=== PATIENT | female | born 1980 | race Caucasian/White ===

== ENCOUNTER 2016-08-23 22:10 | Emergency (ER) | payer MEDICAID ==
[~2016-08-23] VITALS: Ht 167.6 cm; Wt 84.5 kg
[~2016-08-23 22:10] MED LIST: IBUP-1542 PO; OMEG1CAP30 PO
[2016-08-23 22:11] VITALS: Ht 167.6 cm; Wt 84.5 kg
[2016-08-23] MEDS ORDERED: KETOROLAC 30 MG INJ IM STA (23:26)
--- NOTE | 2016-08-24 00:19 | ERD ---
ER Documentation Chief Complaint Date/Time DATE: 08/24/16 TIME: 00:13 Chief Complaint l foot pain sp fall HPI This is a 35-year-old female presenting to the emergency department for left foot pain after fall. Patient states yesterday she slipped and fell landing awkwardly on her left foot. Patient now has pain and swelling to left foot and ankle. Patient states swelling and pain were worse yesterday and has improved today. Patient has been taking Tylenol at home without relief of pain. Patient has full mobility of left foot and ankle. Can bear full weight without difficulty. Walking without limp. Patient rating pain 8/10. Neurovascularly intact. ROS All systems reviewed and are negative except as per history of present illness. Medications Home Meds Active Scripts Ibuprofen* (Motrin*) 800 Mg Tab, 800 MG PO Q6, #15 TAB Prov:JANY COON NP 08/24/16 Hydrocodone/Acetaminophen ([place] 5-325 Tablet) 1 Each Tablet, 1 TAB PO Q6H Y for PAIN, #15 TAB Prov:JANY COON NP 08/24/16 Ibuprofen* (Motrin*) 600 Mg Tab, 600 MG PO Q6, #30 TAB Prov:FIDE ROE MD 02/19/15 Reported Medications Fish Oil/[place]-3 Fatty Acids ([place] 3 Fish Oil Softgel) 1 Cap.ec Capsule.dr, 1000 MG PO DAILY, CAP 02/19/15 Allergies Allergies: Coded Allergies: Fish Containing Products (Verified Allergy, Unknown, 02/19/15) No Known Drug Allergies (Verified Allergy, Unknown, 02/19/15) PMhx/Soc Medical and Surgical Hx: pt denies Medical Hx, pt denies Surgical Hx History of Surgery: No Anesthesia Reaction: No Hx Neurological Disorder: No Hx Respiratory Disorders: Yes Hx Cardiac Disorders: No Hx Psychiatric Problems: No Hx Miscellaneous Medical Probl: Yes (HIGH CHOLESTEROL) Hx Alcohol Use: No Hx Substance Use: No Hx Tobacco Use: No Smoking Status: Never smoker Physical Exam Vitals Vital Signs Date Time Temp Pulse Resp B/P Pulse Ox O2 Delivery O2 Flow Rate FiO2 08/23/16 22:11 97.8 74 18 157/88 98 Physical Exam Const: No acute distress, alert Head: Atraumatic Eyes: Normal Conjunctiva ENT: Normal External Ears, Nose and Mouth. Neck: Full range of motion..~ No meningismus. Resp: Clear to auscultation bilaterally Cardio: Regular rate and rhythm, no murmurs Abd: Soft, non tender, non distended. Normal bowel sounds Skin: No petechiae or rashes Back: No midline or flank tenderness Ext: mild edema to left ankle. ecchymosis and tenderness to palpation of left lateral malleolus. full mobility and strength to left foot and ankle. strength equal bilaterally to lower extremities. pedal pulses palpable bilaterally. no erythema to lower extremity. Neur: Awake and alert Psych: Normal Mood and Affect Results 24 hrs Current Medications Medications (Trade) Dose Ordered Sig/[place] Route PRN Reason Start Time Stop Time Status Last Admin Dose Admin Ketorolac Tromethamine (Toradol) 30 mg ONCE STAT IM 08/23/16 23:26 08/23/16 23:29 DC 08/23/16 23:48 Acetaminophen/ Hydrocodone Bitart ([place] (5/325)) 1 tab ONCE ONCE PO 08/24/16 01:30 08/24/16 01:31 DC 08/24/16 01:22 Procedures/MDM ED COURSE: The patient was stable throughout ED course. I kept the patient and/or family informed of laboratory and diagnostic imaging results throughout the ED course. Toradol given Laboratory Urine negative Imaging X-ray left foot Patient: CELIO FAJARDO : 1980 Age: 35 Sex: F MR #: [id number] DOS: 08/23/16 2326 Ordering MD: JANY COON NP Location: [facility] Room/Bed: PROCEDURE: LEFT FOOT - 3 VIEWS CLINICAL INDICATION: 35-year-old female with left foot pain. TECHNIQUE: AP, lateral and oblique views of the left foot was obtained. The images were reviewed on a PACS workstation. COMPARISON: Left ankle obtained concurrently. FINDINGS: There is an oblique fracture through the distal left fibula. The bones of the left foot appear intact, with no evidence of fracture, dislocation, or subluxation. The joint spaces are preserved. Bone mineralization is within normal limits. IMPRESSION: Oblique distal left fibular fracture. x-ray left ankle Patient: CELIO FAJARDO : 1980 Age: 35 Sex: F MR #: [id number] DOS: 08/23/16 2326 Ordering MD: JANY COON NP Location: [facility] Room/Bed: PROCEDURE: LEFT ANKLE - 3 VIEWS CLINICAL INDICATION: 35-year-old female with left ankle pain. TECHNIQUE: AP, oblique and lateral views of the left ankle were performed. The images reviewed on a PACS workstation. COMPARISON: None. FINDINGS: There is an oblique nondisplaced fracture through the distal left fibula. The mortise and subtalar joints appear intact. There is no evidence for dislocation. There is lateral malleolar region soft tissue swelling. The bone marrow mineralization is within normal limits. IMPRESSION: 1. Oblique nondisplaced distal left fibular fracture. 2. Soft tissue swelling. MDM: 35-year-old female presents to the emergency department for left foot pain after fall. Fall occurred yesterday. Patient is having pain especially near left lateral malleolus with surrounding ecchymosis. X-ray left foot reviewed by radiologist as oblique distal left fibular fracture. X-ray left ankle reviewed by radiologist at oblique nondisplaced distal left fibular fracture and soft tissue swelling. Stirrup ankle splint applied while in the ED. Patient remains neurovascularly intact pre-and post splint application. Patient given Toradol and [place] on the ED with some relief of pain. Discussed findings with patient. Instructed patient to follow-up with orthopedic physician and resources provided at discharge. Remains hemodynamically stable, calm and comfortable throughout ED visit. Patient's diagnosis is distal fibular fracture. Patient is appropriate for outpatient management will be given prescription for [place] and ibuprofen. Instructed patient to follow-up with orthopedic physician as soon as possible and resources provided at discharge. Return to ED for any high fever, chest pain, difficulty breathing, shortness breath, wheezing, vomiting, diarrhea, abdominal pain or any new or worsening symptoms. Patient verbalizes understanding. All questions answered at discharge. Departure Diagnosis: Primary Impression: Left fibular fracture Encounter type: initial encounter Fibula location: distal Fracture type: closed Condition: Stable JANY COON NP Aug 24, 2016 00:19
--- NOTE | 2016-08-24 01:08 | RADRPT ---
PROCEDURE: LEFT ANKLE - 3 VIEWS CLINICAL INDICATION: 35-year-old female with left ankle pain. TECHNIQUE: AP, oblique and lateral views of the left ankle were performed. The images reviewed on a PACS workstation. COMPARISON: None. FINDINGS: There is an oblique nondisplaced fracture through the distal left fibula. The mortise and subtalar joints appear intact. There is no evidence for dislocation. There is lateral malleolar region soft t issue swelling. The bone marrow mineralization is within normal limits. IMPRESSION: 1. Oblique nondisplaced distal left fibular fracture. 2. Soft tissue swelling. .Eitan Huang MD, MD Date Time Electronically viewed and signed by .Eitan Huang MD, on 08/24/2016 01:08 .[place]
--- NOTE | 2016-08-24 01:09 | RADRPT ---
PROCEDURE: LEFT FOOT - 3 VIEWS CLINICAL INDICATION: 35-year-old female with left foot pain. TECHNIQUE: AP, lateral and oblique views of the left foot was obtained. The images were reviewed on a PACS workstation. COMPARISON: Left ankle obtained concurrently. FINDINGS: There is an oblique fracture through the distal left fibula. The bones of the left foot appear inta ct, with no evidence of fracture, dislocation, or subluxation. The joint spaces are preserved. Bone mineralization is within normal limits. IMPRESSION: Oblique distal left fibular fracture. .Eitan Huang MD, MD Date Time Electronically viewed and signed by .Eitan Huang MD, on 08/24/2016 01:09 .Man/
[2016-08-24] MEDS ORDERED: HYDR-906 PO (01:19)
[2016-08-24] MEDS ORDERED: IBUP800T25 PO (01:19)
[2016-08-24] MEDS ORDERED: HYDROCODONE/APAP (5/325) TAB PO ONE (01:30)
[2016-08-24 01:55] VITALS: BP 135/78; PULSE 72; RESP 16
== END 2016-08-24 01:56 | disposition home or self-care (01) ==
LOC: FTE 22:10
DX: S82.832A Other fracture of upper and lower end of left fibula, initial encounter for closed fracture (principal); W01.0XXA Fall on same level from slipping, tripping and stumbling without subsequent striking against object, initial encounter; Y92.9 Unspecified place or not applicable
CPT/HCPCS: 29515; 73610; 73630; J1885; Z7610; 96372